=== PATIENT | male | born 1955 | race Caucasian/White ===

== ENCOUNTER 2019-08-09 21:53 | Emergency (ER) | payer BC ==
[2019-08-10 00:39] VITALS: BP 146/80; PULSE 91
--- NOTE | 2019-08-10 00:42 | EDM.PDOC ---
ED HPI GENERAL MEDICAL PROBLEM - General Chief Complaint: Gastrointestinal Problem Stated Complaint: REAL JUDSON FREEMANA AND THROW UP Time Seen by Provider: 08/10/19 00:40 Source of Information: Reports: Patient History Limitations: Reports: No Limitations - History of Present Illness INITIAL COMMENTS - FREE TEXT/NARRATIVE: long h/o abd problem, tonight started V&D increase pain. Lower Abdomen Pain Score (Numeric/FACES): 5 - Related Data Allergies Allergy/AdvReac Type Severity Reaction Status Date / Time No Known Allergies Allergy Verified 08/09/19 22:16 Home Meds: Home Meds . [No Known Home Meds] 08/09/19 [History] Past Medical History HEENT History: Reports: Impaired Vision - Past Surgical History Musculoskeletal Surgical History: Reports: Hip Replacement, Shoulder Surgery Social & Family History - Family History Family Medical History: Noncontributory - Tobacco Use Smoking Status *Q: Never Smoker Second Hand Smoke Exposure: No - Caffeine Use Caffeine Use: Reports: None - Recreational Drug Use Recreational Drug Use: No ED ROS GENERAL - Review of Systems Review Of Systems: Comprehensive ROS is negative, except as noted in HPI. ED EXAM, GI/ABD - Physical Exam Exam: See Below Exam Limited By: No Limitations General Appearance: Alert, WD/WN, No Apparent Distress. No: Active Emesis Ears: Hearing Grossly Normal Throat/Mouth: Normal Voice, No Airway Compromise Head: Atraumatic Neck: Non-Tender, Full Range of Motion Respiratory/Chest: No Respiratory Distress Cardiovascular: Regular Rate, Rhythm GI/Abdominal Exam: Soft, Tender, Other (mild perium region, BS hyper). No: Distended, Guarding, Rigid, Rebound Neurological: Alert, Oriented, Normal Cognition, Normal Gait, No Motor/Sensory Deficits Psychiatric: Flat Affect Skin Exam: Warm, Dry, Normal Color Lymphatic: No Adenopathy Course - Vital Signs Last Recorded V/S: Last Vital Signs Temp 36.7 C 08/10/19 00:37 Pulse 91 08/10/19 00:37 Resp 28 H 08/10/19 00:37 BP 146/80 H 08/10/19 00:37 Pulse Ox 97 08/10/19 00:37 - Orders/Labs/Meds Labs: Laboratory Tests 08/10/19 08/10/19 08/10/19 Range/Units 00:35 00:35 00:35 WBC 14.1 H (5.0-10.0) 10^3/uL RBC 5.73 (4.6-6.2) 10^6/uL Hgb 17.3 D (14.0-18.0) g/dL Hct 51.2 (40.0-54.0) % MCV 89.4 (80-100) fL MCH 30.2 (27.0-34.0) pg MCHC 33.8 (33.0-35.0) g/dL Plt Count 235 (150-450) 10^3/uL Neut % (Auto) 92.8 H (42.2-75.2) % Lymph % (Auto) 1.0 L (20.5-50.1) % Grant % (Auto) 6.0 (2-8) % Eos % (Auto) 0.1 L (1.0-3.0) % Baso % (Auto) 0.1 (0.0-1.0) % Sodium 139 (135-145) mmol/L Potassium 4.6 (3.6-5.0) mmol/L Chloride 105 (101-111) mmol/L Carbon Dioxide 20.0 L (21.0-31.0) mmol/L Anion Gap 18.6 BUN 30 H (7-18) mg/dL Creatinine 1.2 (0.6-1.3) mg/dL Est Cr Clr Drug Dosing 74.21 mL/min Estimated GFR (MDRD) > 60 BUN/Creatinine Ratio 25.00 Glucose 155 H (74-105) mg/dL Lactic Acid 3.1 H* (0.5-2.0) mmol/L Calcium 9.3 (8.4-10.2) mg/dl Total Bilirubin 1.4 H (0.2-1.0) mg/dL AST 33 (10-42) IU/L ALT 34 (10-60) IU/L Alkaline Phosphatase 75 (42-121) IU/L Total Protein 7.9 (6.7-8.2) g/dl Albumin 4.6 (3.2-5.5) g/dl Globulin 3.3 Albumin/Globulin Ratio 1.39 Amylase 63 (28-100) U/L Lipase 27 (22-51) U/L Meds: Medications Discontinued Medications Generic Name Dose Route Start Last Admin Trade Name Freq PRN Reason Stop Dose Admin Sodium Chloride 1,000 mls @ 999 mls/hr 08/10/19 00:50 08/10/19 02:30 Normal Saline IV 08/10/19 01:50 Infused .BOLUS ONE Infusion Iopamidol 100 ml 08/10/19 01:24 08/10/19 01:42 Isovue-300 (61%) IVPUSH 08/10/19 01:25 100 ml ONETIME ONE Administration Ondansetron HCl 4 mg 08/10/19 00:51 08/10/19 01:01 Zofran IVPUSH 08/10/19 00:52 4 mg ONETIME ONE Administration - Re-Assessments/Exams Free Text/Narrative Re-Assessment/Exam: 08/10/19 03:04 results discussed with pt who states has appoint with surgeon in the morning. states feels ok now. Departure - Departure Time of Disposition: 03:05 Disposition: Home, Self-Care 01 Condition: Good Clinical Impression: Gastroenteritis, Diarrhea, Vomiting - Discharge Information Instructions: Viral Gastroenteritis, Adult, [id number] Forms: ED Department Discharge Additional Instructions: 1) no solid foods next 48 hours 2) have liquids 3) follow up at clinic Sepsis Event Note - Evaluation Sepsis Screening Result: No Definite Risk - Focused Exam Vital Signs: Vital Signs Temp Pulse Resp BP Pulse Ox 08/10/19 00:37 36.7 C 91 28 H 146/80 H 97 08/09/19 22:12 36.9 C 106 H 18 126/84 97 Date Exam was Performed: 08/10/19 Time Exam was Performed: 03:04
[2019-08-10] MEDS ORDERED: Sodium Chloride 0.9% 1,000 ML IV ONE (00:50)
[2019-08-10] MEDS ORDERED: Ondansetron 4 MG/2 ML SDV IVPUSH ONE (00:51)
[2019-08-10 01:01] LABS: ANION GAP 18.6; CHLORIDE,CL 105 mmol/L (101-111); SODIUM,NA 139 mmol/L (135-145)
[2019-08-10] MEDS ORDERED: Iopamidol 612 MG/ML 100 ML Bottle IVPUSH ONE (01:24)
== END 2019-08-10 03:13 | disposition home or self-care (01) ==
LOC: DL.ED 21:53
DX: K52.9 Noninfective gastroenteritis and colitis, unspecified (principal)
CPT/HCPCS: 36415; 74177; 80053; 82150; 83605; 83690; 85025; 96361; 96374; 99284; J2405; J7030; Q9967

== ENCOUNTER 2019-08-13 08:57 | Day surgery (SDC) | payer BC ==
[~2019-08-13 08:57] MED LIST: Dextrose 5%-0.45% NaCl 1,000 ML IV SCH; Midazolam 1 MG/ML 2 ML SDV ONE; fentaNYL 100 MCG/2 ML SDV ONE
[2019-08-13] MEDS ORDERED: fentaNYL 100 MCG/2 ML SDV IV ONE ×3 (08:58→10:02)
[2019-08-13] MEDS ORDERED: Midazolam 1 MG/ML 2 ML SDV IV ONE ×6 (08:58→10:09)
[2019-08-13 15:21] VITALS: BP 129/80; PULSE 48
--- NOTE | 2019-08-13 16:53 | OR ---
DATE: 08/13/2019 PREOPERATIVE DIAGNOSIS: Chronic diarrhea. POSTOPERATIVE DIAGNOSIS: Chronic diarrhea. PROCEDURE: Total colonoscopy with snare excision of 2 sigmoid polyps. ANESTHESIA: Conscious sedation with IV Versed and fentanyl. SPECIMEN: Polyp x2. INDICATION FOR PROCEDURE: This 63-year-old male has chronic diarrhea. OPERATIVE FINDINGS: Normal colonoscopy. Two small pedunculated polyps in the sigmoid. By visualization, these almost appear to be just hyperplastic polyps. PROCEDURE IN DETAIL: After adequate preparation, a colonoscope was inserted into the rectum. This was easily passed all the way to the cecum. Confirmation of the cecum was made by visualization of the ileocecal valve and palpation of the right lower quadrant. The bowel prep was good. On withdrawal of the scope, the only abnormality noted were 2 small polyps in the sigmoid colon and a snare was placed around each one of these. They were clipped off and retrieved for pathological evaluation. I did not find any evidence of colitis or diverticulosis. Anal and rectal examinations were also normal. Air was suctioned from the colon, and the scope removed. [facility] /[id number]
== END 2019-08-13 12:32 | disposition home or self-care (01) ==
LOC: DL.ENDO 08:57
PROVIDERS: ATTEND Surgery
DX: D12.5 Benign neoplasm of sigmoid colon (principal); K52.9 Noninfective gastroenteritis and colitis, unspecified; Z88.8 Allergy status to other drugs, medicaments and biological substances
CPT/HCPCS: 45385; J2250; J3010; J7042